=== PATIENT | male | born 1950 | race Caucasian/White ===

== ENCOUNTER → 2017-07-07 | Outpatient (CLI) | payer MEDICARE, OTHER ==
--- NOTE | 2017-07-07 12:47 | RAD ---
INDICATION: COUGH CONGESTION COMPARISON: None. FINDINGS: Frontal and lateral views of chest obtained. No focal airspace consolidation. Mediastinal contour is unremarkable. No gross osseous destructive lesion. Degenerative changes spine. IMPRESSION: No focal airspace consolidation or edema. There is some mildly coarsened lung markings bilaterally with flattening of the diaphragm. Would correlate for possible causes such as asthma or emphysema.
== END | disposition home or self-care (01) ==
LOC: DXRAD 11:39
PROVIDERS: ATTEND Family Medicine
DX: R05 Cough (principal); R91.8 Other nonspecific abnormal finding of lung field; Z72.0 Tobacco use
CPT/HCPCS: 71046